=== PATIENT | male | born 1975 | race Caucasian/White ===

== ENCOUNTER 2018-08-19 12:23 | Inpatient (IN) | payer OTHER ==
[~2018-08-19] VITALS: Ht 182.9 cm; Wt 108.9 kg
[~2018-08-19 12:23] MED LIST: ACET500; ALBU90OI INH; CLAR500 PO; CLIN300 PO; DESO.05TCA TP; DOXY100 PO; HYDACE5 PO; IBUP800 PO; Norco 10-325 T1 EACH PO; PRED20 PO; WARF10
[2018-08-19 12:38] LABS: BASOPHILS ABSOLUTE AUTO 0.08 K/mm3 (0.00-0.23); BASOPHILS PERCENT AUTO 1 % (0-2); EOSINOPHILS ABSOLUTE AUTO 0.18 K/mm3 (0.00-0.68); EOSINOPHILS PERCENT AUTO 2 % (0-6); Hematocrit 45.2 % (37.0-53.0); Hemoglobin 15.4 g/dL (13.5-17.5); IMMATURE GRAN ABSOLUTE AUTO 0.32 K/mm3 (0.00-0.10); IMMATURE GRAN PERCENT AUTO 3 % (0-1); LYMPHOCYTES ABSOLUTE AUTO 3.14 K/mm3 (0.84-5.20); LYMPHOCYTES PERCENT AUTO 26 % (21-46); MONOCYTES ABSOLUTE AUTO 0.76 K/mm3 (0.16-1.47); MONOCYTES PERCENT AUTO 6 % (4-13); Mean Corpuscular HGB 30.7 pg (26.0-34.0); Mean Corpuscular HGB Conc 34.1 g/dL (31.5-36.5); Mean Corpuscular Volume 90 fL (80-100); Mean Platelet Volume 10.8 fL (9.1-12.4); NEUTROPHILS ABSOLUTE AUTO 7.61 K/mm3 (1.96-9.15); NEUTROPHILS PERCENT AUTO 63 % (41-73); Platelet Count 264 K/mm3 (150-400); RDW Coefficient Variation 12.2 % (11.7-14.2); RDW Standard Deviation 39.9 fL (35.1-46.3); Red Blood Cell Count 5.02 M/mm3 (4.30-5.90); White Blood Cell Count 12.09 K/mm3 (4.00-11.30)
[2018-08-19 12:51] LABS: Alanine Aminotransfer (ALT/SGP 41 U/L (12-78); Albumin, Blood 3.8 g/dL (3.4-5.0); Albumin/Globulin Ratio 1.1 (0.8-1.8); Alk Phos 65 U/L (50-136); Anion Gap 7 mmol/L (6-16); Aspartate Aminotrans (AST/SGOT 24 U/L (12-37); Bilirubin, Total 0.4 mg/dL (0.1-1.0); Blood Urea Nitrogen 13 mg/dL (8-24); Bun/Creatinine Ratio 15.9 (12.0-20.0); CO2, Blood 27 mmol/L (21-32); Calcium, Blood 8.7 mg/dL (8.5-10.1); Chloride, Blood 109 mmol/L (98-108); Creatinine, Blood 0.82 mg/dL (0.60-1.20); Ethanol (Alcohol), Blood, Med <3 mg/dL; Globulin, Blood 3.5 g/dL (2.2-4.0); Glomerular Filtration Rate >60 (60-); Glucose, Blood 120 mg/dL (70-99); Potassium, Blood 4.1 mmol/L (3.5-5.5); Sodium, Blood 143 mmol/L (136-145); Total Protein, Blood 7.3 g/dL (6.4-8.2)
[2018-08-19 12:57] LABS: International Normalized Ratio 0.93; Prothrombin Time Results 9.8 Sec (9.7-11.5)
[2018-08-19 14:54] LABS: U Amphetamine Screen Not Detected; U Barbituate Screen Not Detected; U Benzodiazapine Screen Not Detected; U Buprenorphine Screen Not Detected; U Cannabinoids Screen DETECTED; U Cocaine Screen Not Detected; U Methadone Screen Not Detected; U Methamphetamine Screen Not Detected; U Opiates Screen Not Detected; U Oxycodone Screen Not Detected; U Phencyclidine Screen Not Detected; U Propoxyphene Screen Not Detected
--- NOTE | 2018-08-19 18:37 | NUR ---
PT ARRIVED TO THE UNIT AT APPROXIMATEY 1640. PT ALERT AND ORIENTED AT TIME OF ARRIVAL. PAIN INCREASES WITH MOVEMENT BUT PT REPORTS PAIN IS TOLERABLE.
--- NOTE | 2018-08-19 19:29 | NUR ---
DR. FERRO NOTIFIED THAT PT'S CHEST IS ASYMETRICAL WITH INSPIRATION.
--- NOTE | 2018-08-19 19:30 | NUR ---
SHIFT SUMMARY PAIN MANAGED WITH PO AND IV PAIN MEDICATION. FAMILY AT THE BEDSIDE. VSS. NO CHANGES SINCE ARRIVAL TO THE UNIT. REPORT GIVEN TO ALTA LAMA.
[2018-08-20 04:35] LABS: BASOPHILS ABSOLUTE AUTO 0.05 K/mm3 (0.00-0.23); BASOPHILS PERCENT AUTO 1 % (0-2); EOSINOPHILS ABSOLUTE AUTO 0.16 K/mm3 (0.00-0.68); EOSINOPHILS PERCENT AUTO 2 % (0-6); Hematocrit 41.4 % (37.0-53.0); IMMATURE GRAN ABSOLUTE AUTO 0.09 K/mm3 (0.00-0.10); IMMATURE GRAN PERCENT AUTO 1 % (0-1); LYMPHOCYTES ABSOLUTE AUTO 1.79 K/mm3 (0.84-5.20); LYMPHOCYTES PERCENT AUTO 21 % (21-46); MONOCYTES ABSOLUTE AUTO 0.75 K/mm3 (0.16-1.47); MONOCYTES PERCENT AUTO 9 % (4-13); Mean Corpuscular HGB 30.8 pg (26.0-34.0); Mean Corpuscular HGB Conc 33.8 g/dL (31.5-36.5); Mean Corpuscular Volume 91 fL (80-100); Mean Platelet Volume 10.9 fL (9.1-12.4); NEUTROPHILS ABSOLUTE AUTO 5.88 K/mm3 (1.96-9.15); NEUTROPHILS PERCENT AUTO 68 % (41-73); Platelet Count 180 K/mm3 (150-400); RDW Coefficient Variation 12.7 % (11.7-14.2); RDW Standard Deviation 41.8 fL (35.1-46.3); Red Blood Cell Count 4.55 M/mm3 (4.30-5.90); White Blood Cell Count 8.72 K/mm3 (4.00-11.30)
[2018-08-20 05:01] LABS: Anion Gap 6 mmol/L (6-16); Blood Urea Nitrogen 19 mg/dL (8-24); Bun/Creatinine Ratio 21.6 (12.0-20.0); CO2, Blood 25 mmol/L (21-32); Calcium, Blood 8.2 mg/dL (8.5-10.1); Chloride, Blood 105 mmol/L (98-108); Creatinine, Blood 0.88 mg/dL (0.60-1.20); Glomerular Filtration Rate >60 (60-); Glucose, Blood 98 mg/dL (70-99); Potassium, Blood 4.6 mmol/L (3.5-5.5); Sodium, Blood 136 mmol/L (136-145)
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
--- NOTE | 2018-08-20 17:55 | NUR ---
SHIFT SUMMARY PAIN HAS BEEN MANAGED WITH PO AND IV PAIN MEDICATION. PT'S PAIN INCREASES WITH MOVEMENT. PT IS ABLE TO REPOSITION HIMSELF IN THE BED. FAMILY HAS BEEN AT THE BEDSIDE T/O THE DAY. VSS. WILL MONITOR UNTIL REPORT TO ONCOMING RN.
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
--- NOTE | 2018-08-21 17:05 | NUR ---
SHIFT SUMMARY PT HAS DONE WELL THIS SHIFT. AMBULATING IN HALLWAY WITH THERAPY ONCE, SBA TO BATHROOM. SLING IN PLACE LUE. PAIN MANAGED WITH 2 ROXICODONE Q4 X'S 3 AND 4MG MORPHINE ONCE. O2 SAT DROPPED TO 83% ON RA W/EXCERTION WHILE AMBULATING, 94% ON 2.5L O2 NC. VSS. PLAN IS TO CONTINUE TO TRY AND WEAN O2 TO RA AND DC HOME TOMORROW.
--- NOTE | 2018-08-22 06:50 | NUR ---
recvd report from previous shift lisa Britt, pt sitting at bedside, states his pain is controlled per mar, is preparing to take a shower
--- NOTE | 2018-08-22 07:31 | NUR ---
SUMMARY NO ACUTE CHANGES THROUGH THE NIGHT. PAIN MANAGED WITH PO PAIN MEDS AND IV MORPHINE. PT IS INDEPENDENT IN ROOM AND CALLS FOR ASSISTANCE PRN. PT DENIES SOB, WEARS 2 L O2 WHILE SLEEPING FOR COMFORT. LUNGS REMAIN DIM IN BASES. LEFT ARM IN SLING, BRACED ON PILLOWS. URINE REMAINS DARK. PT ENC TO INCREASE PO INTAKE. I/S USE STRONGLY ENCOURAGED./ CALL LIGHT IN REACH. REPORT GIVEN TO DAY RN.
[2018-08-22] MEDS ORDERED: Percocet 7.5-31 EACH PO (17:29)
[2018-08-22] MEDS ORDERED: METCAR500 PO (17:33)
--- NOTE | 2018-08-22 18:16 | NUR ---
PERIPHERAL IV REMOVED WNL, PT PROVIDED WITH DISCHARGE INSTRUCTIONS AND PRINTED MATERIALS, PRESCRIPTIONS PROVIDED, BELONGINGS TAKEN TO AWAITING VEHICLE BY PT'S SON. PT ESCORTED TO VEHICLE VIA WHEELCHAIR
== END 2018-08-22 18:15 | disposition home or self-care (01) | DRG 200 ==
LOC: ER 12:23 → SURS 14:52
PROVIDERS: Emergency Medicine; ADMIT Surgery
DX: S27.0XXA Traumatic pneumothorax, initial encounter (principal); S22.030A Wedge compression fracture of third thoracic vertebra, initial encounter for closed fracture; S22.040A Wedge compression fracture of fourth thoracic vertebra, initial encounter for closed fracture; S22.050A Wedge compression fracture of T5-T6 vertebra, initial encounter for closed fracture; S22.42XA Multiple fractures of ribs, left side, initial encounter for closed fracture; S42.002A Fracture of unspecified part of left clavicle, initial encounter for closed fracture; V29.40XA Motorcycle driver injured in collision with unspecified motor vehicles in traffic accident, initial encounter; Z86.711 Personal history of pulmonary embolism; F17.210 Nicotine dependence, cigarettes, uncomplicated
CPT/HCPCS: 36415; 70450; 71046; 71260; 72070; 72125; 73000; 73590; 74177; 80048; 80053; 83690; 85025; 85610; 85730; 86850; 86900; 86901; 93005; 93010; 94667; 94760; 96361-59; 96374-59; 96375-59; 97162; 97530; 99285-25; G0480; J1170; J1650; J1885; J2270; J2405; J7120; Q9967